=== PATIENT | male | born 1945 | race Caucasian/White ===

== ENCOUNTER 2024-03-03 17:05 | Emergency (ER) | payer MEDICARE, OTHER | END 2024-03-03 17:54 | disposition home or self-care (01) | LOC: CSHERS 17:05 → MERGE 17:05 → CSHERS 17:54 | DX: L03.213 Periorbital cellulitis (principal); I10 Essential (primary) hypertension; E11.40 Type 2 diabetes mellitus with diabetic neuropathy, unspecified | CPT/HCPCS: 99283 ==